=== PATIENT | male | born 1955 | race Caucasian/White ===

== ENCOUNTER 2017-01-20 14:48 | Emergency (ER) | payer MEDICARE ==
[~2017-01-20 14:48] MED LIST: CALCIUM CHLORIDE 100 MG/ML 10 ML SYRINGE ONE; EPINEPHrine 1 MG/ML (MDV) 30 ML VIAL ONE; EPINEPHrine 10 ML SYRINGE (0.1 MG/ML) ONE; SODIUM BICARB 8.4% 50 ML SYR (1 MEQ/ML) ONE
--- NOTE | 2017-01-20 15:04 | ED ---
General Adult HPI - General Stated complaint: UNRESPONSIVE Time Seen by Provider: 01/20/17 14:48 Source: RN notes reviewed - History of Present Illness Initial comments: This is a 61-year-old male with past medical history significant for 3 heart attacks. There is not a lot of history at this time because the patient is not talking to us and there is no one with the patient. EMS was called seen because the patient was having difficulty breathing. When EMS arrived he stated he was having severe difficulty breathing but did not complain of chest pain. EMS stated at that time he was ashen ngo tachypneic and tachycardic. In route the patient's blood pressure was low and then just prior to arrival was 120 systolic. They thought the patient was in A. fib for a moment and considered cardioverting but his blood pressure came back suddenly decided to hold off. When they came to the emergency room doors they lost a pulse and the patient stopped breathing and at this point time CPR was started and we started bagging the patient. Review of Systems ROS Statement: Those systems with pertinent positive or pertinent negative responses have been documented in the HPI. ROS Other: All systems not noted in ROS Statement are negative. General Exam - General Exam Comments Initial Comments: GENERAL: Patient is well-developed and well-nourished. Patient is not breathing not moving and is pale ENT: Neck is soft and supple. No significant lymphadenopathy is noted. Oropharynx is clear. Moist mucous membranes. EYES: The sclera were anicteric and conjunctiva were pink and moist. PULMONARY: No respiratory effort from the patient CARDIOVASCULAR: Patient is pulseless I do not hear any heart sounds. ABDOMEN: Abdomen is nondistended SKIN: Skin is pale in color NEUROLOGICAL Patient is unresponsive Medical Decision Making - Medical Decision Making EKG shows sinus tachycardia 130 bpm TN interval is 134 QRS is 142 QT interval 328 QTC is 482. Patient's EKG shows a right bundle branch block. I spoke with Dr. Almanzar about the patient after pulses returned. I informed him that the patient had CPR on arrival and currently had a blood pressure. Chest x-ray shows the ET tube is too far and I pulled back 2 cm. Patient had pulses returned on 3 different occasions in between CPR was continued. Please look at the code sheet for further details. Patient was pronounced at 1540 I spoke with Ghazala Dunlap the biomedical analytical scientist. I spoke with Dr. Campos - Lab Data Result diagrams: 01/20/17 14:57 01/20/17 14:57 Lab Results 01/20/17 01/20/17 01/20/17 Range/Units 14:57 14:57 14:57 WBC 15.7 H (3.8-10.6) k/uL RBC 4.74 (4.30-5.90) m/uL Hgb 13.9 (13.0-17.5) gm/dL Hct 45.0 (39.0-53.0) % MCV 95.0 (80.0-100.0) fL MCH 29.4 (25.0-35.0) pg MCHC 31.0 (31.0-37.0) g/dL RDW 13.5 (11.5-15.5) % Plt Count 480 H (150-450) k/uL PT 11.2 (9.0-12.0) sec INR 1.1 (<1.2) APTT 23.0 (22.0-30.0) sec Sodium 138 (137-145) mmol/L Potassium 4.5 (3.5-5.1) mmol/L Chloride 103 (98-107) mmol/L Carbon Dioxide 13 L (22-30) mmol/L Anion Gap 22 mmol/L BUN 17 (9-20) mg/dL Creatinine 1.33 H (0.66-1.25) mg/dL Est GFR (MDRD) Af Amer >60 (>60 ml/min/1.73 sqM) Est GFR (MDRD) Non-Af 55 (>60 ml/min/1.73 sqM) Glucose 246 H (74-99) mg/dL Calcium 8.8 (8.4-10.2) mg/dL Magnesium 2.4 H (1.6-2.3) mg/dL Total Bilirubin 0.4 (0.2-1.3) mg/dL AST 29 (17-59) U/L ALT 39 (21-72) U/L Alkaline Phosphatase 72 (38-126) U/L Total Protein 7.2 (6.3-8.2) g/dL Albumin 3.2 L (3.5-5.0) g/dL Critical Care Time Critical Care Time: Yes Total Critical Care Time: 55 Disposition Clinical Impression: Cardiopulmonary arrest Disposition: Referrals: Douglas Campos MD [Primary Care Provider] - 1-2 days Time of Disposition: 15:45 Preliminary Cause of : Cardiopulmonary arrest
--- NOTE | 2017-01-20 15:16 | XR ---
EXAMINATION TYPE: XR chest 1V portable DATE OF EXAM: 01/20/2017 COMPARISON: NONE HISTORY: Intubated, unresponsive TECHNIQUE: Single frontal view of the chest is obtained. FINDINGS: Patient is rotated. Endotracheal tube is overlying the tracheal air column, distal tip at the level of the proximal right mainstem bronchus. Mediastinum is widened. Heart is enlarged. No air space disease, pneumothorax, pleural effusion, lung volumes are low. IMPRESSION: Endotracheal tube as described, case discussed with Dr. Glez. Widened mediastinum, cardio megaly. Consider chest CT.
[2017-01-20 15:20] LABS: INR 1.1 (<1.2); Prothrombin Time 11.2 sec (9.0-12.0)
[2017-01-20 15:23] LABS: ALT 39 U/L (21-72); AST 29 U/L (17-59); Alkaline Phosphatase 72 U/L (38-126); Anion Gap 22 mmol/L; Blood Urea Nitrogen 17 mg/dL (9-20); Calcium 8.8 mg/dL (8.4-10.2); Carbon Dioxide 13 mmol/L (22-30); Chloride 103 mmol/L (98-107); Glucose 246 mg/dL (74-99); Magnesium 2.4 mg/dL (1.6-2.3); Non-African American GFR(MDRD) 55 (>60 ml/min/1.73 sqM); Potassium 4.5 mmol/L (3.5-5.1); Sodium 138 mmol/L (137-145); Total Bilirubin 0.4 mg/dL (0.2-1.3); Total Protein 7.2 g/dL (6.3-8.2)
[2017-01-20 15:31] LABS: CH 28.3; CHCM 29.9; HDW 2.77; HGB 13.9 gm/dL (13.0-17.5); Hypochromasia Marked; MCH 29.4 pg (25.0-35.0); Mean Platelet Volume 7.8; RBC 4.74 m/uL (4.30-5.90); RDW 13.5 % (11.5-15.5); WBC (Perox) 15.77
[2017-01-20 15:42] LABS: Glucose,Whole Blood 277 mg/dL (75-99)
[2017-01-20 15:43] LABS: ABG PH <7.00 (7.35-7.45)
[2017-01-20 15:44] LABS: ABG Base Excess -19.3 mmol/L; ABG HCO3 13 mmol/L (21-25); ABG Oxygen Saturation 72.3 % (94-97); ABG PCO2 87 mmHg (35-45); ABG PO2 71 mmHg (83-108); ABG TCO2 16 mmol/L (19-24)
[2017-01-20 15:44] LABS: Add Differential Manual Differential
[2017-01-20 15:48] LABS: Band Neutrophils % 1 %; Manual Review Performed; Metamyelocytes % 1 %; Myelocytes % 3 %; Nucleated Red Blood Cells 1 /100 WBC (0-0); Total Cells Counted 200; WBC 15.5 k/uL (3.8-10.6)
[2017-01-20 15:49] LABS: Large Platelets Present
[2017-01-20 16:10] LABS: Troponin I 0.035 ng/mL (0.000-0.034)
== END 2017-01-20 18:28 | disposition expired ==
LOC: EC 14:48
DX: I46.9 Cardiac arrest, cause unspecified (principal); I45.10 Unspecified right bundle-branch block
CPT/HCPCS: 99291 ×2; 92950 ×2; 36415; 94002; 93005; 83880; 80053; 82550; 82553; 82805; 83735; 84484; 85025; 85610; 85730; 71010; J0171 ×2